=== PATIENT | male | born 1975 | race Two or more races ===

== ENCOUNTER 2020-08-20 02:50 | Emergency (ER) | payer OTHER ==
[~2020-08-20] VITALS: Ht 180.3 cm; Wt 84.4 kg
--- NOTE | 2020-08-20 03:01 | NUR ---
PT AAOX4. BIBLAPD FOR OTB. PT STATED HE WAS TESTED POSITIVE FOR COVID X4 DAYS AGO. RR EVEN AND UNLABORED. VSS.
--- NOTE | 2020-08-20 03:06 | NUR ---
JONATHANID SWABBED, SENT TO LAB.
--- NOTE | 2020-08-20 04:05 | NUR ---
PT DISCHARGED. IN CUSTODY. VSS.
[2020-08-20 05:14] VITALS: BP 137/75
== END 2020-08-20 04:05 ==
LOC: ER 02:51
DX: Z04.89 Encounter for examination and observation for other specified reasons (principal); Z20.828 Contact with and (suspected) exposure to other viral communicable diseases
CPT/HCPCS: 87426; 99283; C9803